=== PATIENT | male | born 1940 | race Caucasian/White ===

== ENCOUNTER → 2023-02-04 | Outpatient (CLI) | payer BC ==
[~2023-02-04] MED LIST: AMOCLA875 PO; BUDE6HFA INH; CEPH500 PO; CLIN300 PO; TIOT18 INH
== END | disposition home or self-care (01) ==
LOC: LAB 12:56 → LAB SHORT 12:56
DX: N39.0 Urinary tract infection, site not specified (principal)
CPT/HCPCS: 87086

== ENCOUNTER 2023-05-23 21:41 | Observation (INO) | payer MEDICARE ==
[~2023-05-23] VITALS: Ht 177.8 cm; Wt 79.0 kg
[2023-05-24 01:52] LABS: Anti-Xa UFH, PHA Monitoring <0.10 IU/mL; International Normalized Ratio 0.99; Prothrombin Time Results 10.4 Sec (9.7-11.5)
[2023-05-24 02:45] VITALS: BP 154/88
[2023-05-24 03:16] LABS: BASOPHILS ABSOLUTE AUTO 0.05 K/mm3 (0.00-0.23); BASOPHILS PERCENT AUTO 1 % (0-2); EOSINOPHILS ABSOLUTE AUTO 0.25 K/mm3 (0.00-0.68); EOSINOPHILS PERCENT AUTO 4 % (0-6); Hematocrit 43.7 % (37.0-53.0); Hemoglobin 14.3 g/dL (13.5-17.5); IMMATURE GRAN ABSOLUTE AUTO 0.01 K/mm3 (0.00-0.10); IMMATURE GRAN PERCENT AUTO 0 % (0-1); LYMPHOCYTES ABSOLUTE AUTO 1.68 K/mm3 (0.84-5.20); LYMPHOCYTES PERCENT AUTO 25 % (21-46); MONOCYTES ABSOLUTE AUTO 0.89 K/mm3 (0.16-1.47); MONOCYTES PERCENT AUTO 13 % (4-13); Mean Corpuscular HGB Conc 32.7 g/dL (31.5-36.5); Mean Corpuscular Volume 92 fL (80-100); Mean Platelet Volume 9.1 fL (9.1-12.4); NEUTROPHILS ABSOLUTE AUTO 3.97 K/mm3 (1.96-9.15); NEUTROPHILS PERCENT AUTO 58 % (41-73); Platelet Count 285 K/mm3 (150-400); RDW Coefficient Variation 14.1 % (11.7-14.2); Red Blood Cell Count 4.77 M/mm3 (4.30-5.90); White Blood Cell Count 6.85 K/mm3 (4.00-11.30)
[2023-05-24 03:44] LABS: Calcium, Blood 9.2 mg/dL (8.5-10.1); Creatinine, Blood 1.47 mg/dL (0.60-1.20); Potassium, Blood 3.9 mmol/L (3.5-5.5)
--- NOTE | 2023-05-24 04:58 | NUR ---
ARRIVAL TO [facility] / SAFETY & EDUCATION / SHIFT SUMMARY PT ARRIVED TO [facility] AT APPROXIMATELY 0300. PT TRANSFERED FROM ER [facility] TO HOSPITAL BED IND. PT A&Ox4, COMMUNICATES NEEDS APPROPRIATELY, ORIENTED TO CALL LIGHT/UNIT. BP STABLE, SINUS 70's, DENIES CP/PRESSURE. SpO2> 92% RA, DENIES SOB. HEPARIN gtt INFUSING PER EMAR, MANAGED BY PHARMACY. PT HAS SUPRAPUBIC CATH CONNECTED TO DRAINAGE BAG. BED IN LOWEST POSITION, CALL LIGHT IN REACH. PT & FAMILY EDUCATED RE: IGNITION SOURCES AND RISK OF INJURY WHILE OXYGEN IS IN USE. PT DENIES SMOKING & PT AND FAMILY VERBALIZE UNDERSTANDING. PT HAS RESTED COMFORTABLY SINCE ARRIVAL TO UNIT. WILL REPORT TO ONCOMING RN.
[2023-05-24 07:40] VITALS: BP 127/79
[2023-05-24] MEDS ORDERED: STIOLTO RESPIMAT4 G1 (08:56)
[2023-05-24] MEDS ORDERED: ALBU90OI INH (08:56)
[2023-05-24] MEDS ORDERED: ELIQUIS5 M2 PO (13:28)
--- NOTE | 2023-05-24 14:07 | NUR ---
DISCHARGE NOTE This RN assumed care at 0700. vital signs stable and have remained stable at discharge. patient is alert and oriented x4. perrla. patient reports no pain, chest pain/pressure, or shortness of breath. see shift assessment for further detials. patient capped suprapubic catheter before leaving and removed bag. patient and patient family educated on discharge instructions, medications and follow up appointment. patient left with all belongings and in no distress.
== END 2023-05-24 13:53 | disposition home or self-care (01) ==
LOC: ER 21:41 → PCU 21:42
PROVIDERS: Family Medicine; Student in an Organized Health Care Education/Training Program; ADMIT Internal Medicine
DX: I26.99 Other pulmonary embolism without acute cor pulmonale (principal); E04.9 Nontoxic goiter, unspecified; N18.30 Chronic kidney disease, stage 3 unspecified; J44.9 Chronic obstructive pulmonary disease, unspecified; Z87.891 Personal history of nicotine dependence; N17.9 Acute kidney failure, unspecified
CPT/HCPCS: 36415; 71260; 80048; 83880; 84484; 85025; 85379; 85520; 85610; 93005; 93010; 93306; 94640; 94760; 96365; 96376; 99285; A9270; G0378; J1644; Q9967

== ENCOUNTER → 2023-08-19 | Outpatient (CLI) | payer MEDICARE ==
[~2023-08-19] MED LIST changes: +ALBU90OI INH; +ELIQUIS5 M2 PO; +STIOLTO RESPIMAT4 G1
[2023-08-19 15:27] LABS: Source, Urine Clean Catch
[2023-08-19 18:25] LABS: Appearance, Urine Hazy (Clear); Bilirubin, Urine Neg (Neg); Blood, Urine 5+ (Neg); Color, Urine Yellow (P-Yellow); Glucose Qualitative, Urine Neg (Neg); Ketones, Urine Neg (Neg); Leukocyte Esterase, Urine 3+ (Neg); Nitrite, Urine Neg (Neg); Protein, Urine 2+ (Neg); Urobilinogen, Urine NORM (Normal)
[2023-08-19 19:30] LABS: Bacteria Many /hpf; Red Blood Cells, Urine 50-100 /hpf (0-2); Squamous Epithelial Cells Rare /hpf (Few); White Blood Cells, Urine 50-100 /hpf (0-5)
== END | disposition home or self-care (01) ==
LOC: LAB 14:00 → LAB SHORT 14:00
PROVIDERS: Urology
DX: R31.0 Gross hematuria (principal)
CPT/HCPCS: 81001; 87077; 87086; 87186